=== PATIENT | female | born 1955 | race Caucasian/White ===

== ENCOUNTER 2018-09-01 21:03 | Emergency (ER) | payer OTHER ==
[2018-09-01] MEDS: ACETAMINOPHEN 325 MG TAB PO (22:57)
[2018-09-01] MEDS: CYCLOBENZAPRINE 10 MG TAB PO (22:58)
[2018-09-01] MEDS: IBUPROFEN 600 MG TAB PO (22:58)
[2018-09-01] MEDS: DEXAMETHASONE (1 MG/ML PO SYG) PO (23:39)
== END 2018-09-01 23:40 | disposition home or self-care (01) ==
LOC: FTE 23:40
DX: M62.838 Other muscle spasm (principal); I10 Essential (primary) hypertension; E11.9 Type 2 diabetes mellitus without complications
CPT/HCPCS: 99283; Z7502